=== PATIENT | female | born 1970 | race Caucasian/White ===

== ENCOUNTER 2017-05-11 17:00 | Inpatient (IN) | payer OTHER ==
--- NOTE | ~2017-05-11 | PN ---
Unit #: [id number] #: [id number] Patient: JOCELYNE HARDEN [id number] [facility] [address] [place] [address] [id number] MR#: [id number] NAME: JOCELYNE HARDEN ROOM: [facility] Age: 46 Sex: F Admission Date: 05/11/2017 : 1970 Attending Physician: Ministerio Martinez M.D. Admitting Physician: Ministerio Martinez M.D. Primary Care Physician: Generic Doctor Not In System [facility] PROGRESS NOTES DATE 05/15/2017 DISCUSSION Ms. Harden is a 46-year-old white female with mood disorder and substance abuse who was seen today and chart was reviewed and case was discussed with the staff. She reports doing much better and has been calm and cooperative and compliant with treatment recommendations as she has been taking medications and tolerating them fairly well with no reported side effects. MENTAL STATUS EXAMINATION Middle-aged white female who was casually dressed with fair personal hygiene and appears to be in no acute distress or discomfort. She was awake and alert with intact orientation. Her mood was anxious with congruent affect. She denies any suicidal or homicidal ideation and also denies any auditory or visual hallucinations. Her insight and judgement remains slightly impaired. TREATMENT PLAN 1. Will continue on current medications and treatment protocol. Will monitor her response to medications and make further adjustments as needed. 2. Will continue to follow up. Dictated by... Ministerio Martinez M.D. IAA/faviola TD: 05/15/2017 18:57 JOB #: [id number] Unit #: [id number] #: [id number] Patient: JOCELYNE HARDEN [facility] PROGRESS NOTES Page 1 of 1 X Ministerio Martinez MD X PROGRESS NOTE
--- NOTE | ~2017-05-11 | PN ---
Unit #: [id number] #: [id number] Patient: JOCELYNE HARDEN [id number] [facility] [address] [place] [address] [id number] I MR#: [id number] NAME: JOCELYNE HARDEN ROOM: [facility] Age: 46 Sex: F Admission Date: 05/11/2017 : 1970 Attending Physician: Ministerio Martinez M.D. Admitting Physician: Ministerio Martinez M.D. Primary Care Physician: Generic Doctor Not In System [facility] PROGRESS NOTES DATE May 13, 2017 DISCUSSION Ms. Harden is a 46-year-old white female, who was seen today and chart was reviewed and the case was discussed with the staff. The patient has been anxious, withdrawn, and rather seclusive to herself. Meanwhile, she has been cooperative with the treatment recommendations and she has been taking the medications and tolerating them fairly well. MENTAL STATUS EXAMINATION Middle-aged white female, who was casually dressed with fair personal hygiene and appears to be in no acute distress or discomfort. The patient was awake and alert with intact orientation. Her mood is anxious with a congruent affect. The patient denies any suicidal or homicidal ideations. Her insight and judgment remain slightly impaired. TREATMENT PLAN 1. We will continue her on her current treatment protocol, and will monitor her response to the medications, and make further adjustments as needed. 2. We will continue to followup. Dictated by... Azeem Zendejas/nubia TD: 05/14/2017 08:35 JOB #: [id number] Unit #: [id number] #: [id number] Patient: JOCELYNE HARDEN [facility] PROGRESS NOTES Page 1 of 1 X Ministerio Martinez MD X PROGRESS NOTE
--- NOTE | ~2017-05-11 | DS ---
Unit #: [id number] #: [id number] Patient: JOCELYNE HUDDLESTON [id number] [facility] [address] [id number] I MR#: [id number] NAME: JOCELYNE HUDDLESTON ROOM: P176 Age: 46 Sex: F Admission Date: 05/11/2017 : 1970 Discharge Date: 05/17/2017 Attending Physician: Ministerio Martinez M.D. Primary Care Physician: Generic Doctor Not In System DISCHARGE SUMMARY IDENTIFYING DATA Ms. Huddleston is a 46-year-old white female, who is a resident of [place], [place] and was self-referred to the hospital on a volunteer basis with the chief complaint of "I want to and I am going to cut my wrist." HISTORY OF PRESENT ILLNESS Please see initial psychiatric evaluation for details. PAST PSYCHAITTRIC HISTORY Please see initial psychiatric evaluation for details. PAST MEDICAL HISTORY Please see initial psychiatric evaluation for details. HOSPITAL COURSE The patient was admitted to the Adult Chemical Dependence Unit at [facility] and was oriented to the hospital environment, routine p.r.n. medications were initiated and she was started on the opiate detox protocol and was closely monitored. The patient was anxious, withdrawn, and rather seclusive to herself; however, she was polite and pleasant and cooperative with the treatment recommendations and able to come out of the detox without any complications and was denying any suicidal ideations, intent, or plan and was willing to continue treatment on outpatient basis and as such it was decided that she will be maintained on her current medications and treatment protocol, and will be discharged to continue treatment on outpatient basis. DISCHARGE DIAGNOSES Hunnewell I Major depressive disorder, recurrent, moderate, without psychotic features. Opiate dependence, moderate, and acute withdrawal. Methamphetamine dependence, moderate. Hunnewell II Hunnewell III None. Hunnewell IV Moderate psychosocial stressors. Hunnewell V DISCHARGE MEDICATIONS None CONDITION AT DISCHARGE Unit #: [id number] #: [id number] Patient: JOCELYNE HUDDLESTON Stable PROGNOSIS Guarded Dictated by... Azeem Zendejas/nubia TD: 05/17/2017 08:38 JOB #: [id number] DISCHARGE SUMMARY Page 1 of 1 X Ministerio Martinez MD DISCHARGE SUMMARY
--- NOTE | ~2017-05-11 | PA ---
Unit #: [id number] #: [id number] Patient: JOCELYNE HARDEN [id number] [facility] [address] [place] [address] [id number] I MR#: [id number] NAME: JOCELYNE HARDEN ROOM: 84 Age: 46 Sex: F Admission Date: 05/11/2017 : 1970 Date of Assessment: Attending Physician: Ministerio Martinez M.D. Admitting Physician: Ministerio Martinez M.D. Primary Care Physician: Generic Doctor Not In System PSYCHIATRIC ASSESSMENT DATE OF SERVICE 05/12/2017. IDENTIFYING DATA Ms. Harden is a 46-year-old white female, who is a resident of [place], [place], and was self-referred to the hospital on a voluntary basis. CHIEF COMPLAINT "I want to and I'm going to cut my wrists." HISTORY OF PRESENT ILLNESS Ms. Harden is a 46-year-old white female with history of substance abuse and mood disorder, who was self-referred to the hospital. Upon presentation, she reports increasing depression and suicidal ideation with an intent and plan "I've been wanting to for months, I broke up with my boyfriend and I'm homeless." She denies any homicidal ideations, though she does report some paranoia and hallucinations and delusions, particularly when she is using methamphetamine and was seen to be quite compromised, disorganized, and a danger to self and others and as such, a recommendation for inpatient level of care for safety and stabilization was made. SUBSTANCE ABUSE HISTORY The patient reports extensive history of substance abuse and dependence including alcohol, cannabis, cocaine, acid, and opioids, and methamphetamines and currently, it appears that methamphetamine and opioids have been her drug of choice as she reports that she has been using up to 2 g of heroin a day and has been using 8 g of methamphetamine on a daily basis. PAST PSYCHIATRIC HISTORY The patient has not had any prior inpatient or outpatient psychiatric treatment. Review of the medical records indicate currently she is not active in any treatment program, is not seeing a psychiatrist, and is not taking any psychotropic medications. PAST MEDICAL HISTORY No acute or chronic medical illnesses. ALLERGIES No known medication allergies. Unit #: [id number] #: [id number] Patient: JOCELYNE HARDEN CURRENT MEDICATIONS None. PERSONAL AND SOCIAL HISTORY A 46-year-old white female, who reports that she is single, unemployed, and essentially homeless and has poor social support system. MENTAL STATUS EXAMINATION Middle-aged white female, who was casually dressed with fair personal hygiene, appears to be in no acute distress or discomfort. She was awake and alert on interaction with intact orientation to time, place, and person. Her mood was anxious and depressed with a congruent affect. Her speech was slow and restricted in content. She reports having suicidal ideations, but denies any homicidal ideations and also denies any auditory or visual hallucinations. Her insight and judgment remain significantly impaired. DIAGNOSTIC IMPRESSION Psychiatric: Major depressive disorder, recurrent, moderate, without psychotic features; opioid dependence, moderate, in acute withdrawals; and methamphetamine dependence, moderate. Medical: None. Stressors: Moderate psychosocial stressors. TREATMENT PLAN 1. The patient has presented with a history of mood disorder and substance abuse and dependence and has been decompensating and will need inpatient hospitalization for detoxification, safety, and stabilization. We will start her on detox protocol. We will monitor her response and make further adjustments as needed. 2. Supportive therapy was provided to the patient. ESTIMATED LENGTH OF STAY 5 to 7 days. ABILITY TO HELP SELF Limited. WILLINGNESS TO HELP SELF The patient appears to be willing to help self. STRENGTHS 1. Communicative. 2. Cooperative. PROBLEMS 1. Chronic dysphoric symptoms. 2. Poor social support system. DISCHARGE CRITERIA This will be contingent upon the patient's ability to show resolution of her depression and anxiety and her ability to stay safe to herself, particularly after discharge from the hospital. Dictated by... Ministerio Martinez M.D. Unit #: [id number] #: [id number] Patient: JOCELYNE HARDEN IAA/modl TD: 05/12/2017 15:04 JOB #: [id number] PSYCHIATRIC ASSESSMENT Page 1 of 1 X Ministerio Martinez MD PSYCHIATRIC ASSESSMENT
--- NOTE | ~2017-05-11 | PN ---
Unit #: [id number] #: [id number] Patient: JOCELYNE HARDEN [id number] [facility] [address] [place] [address] [id number] I MR#: [id number] NAME: JOCELYNE HARDEN ROOM: [facility] Age: 46 Sex: F Admission Date: 05/11/2017 : 1970 Attending Physician: Ministerio Martinez M.D. Admitting Physician: Ministerio Martinez M.D. Primary Care Physician: Generic Doctor Not In System [facility] PROGRESS NOTES DATE May 14, 2017 DISCUSSION Ms. Harden is a 46-year-old white female, who was seen today and chart was reviewed and the case was discussed with the staff. The patient has been anxious, withdrawn, and rather seclusive to herself. Meanwhile, she has been taking the medications and tolerating them fairly well with no reported side effects. MENTAL STATUS EXAMINATION Middle-aged white female, who was casually dressed with fair personal hygiene and appears to be in no acute distress or discomfort. The patient was awake and alert with impaired attention and concentration. Her mood was anxious and depressed with a congruent affect. She denies any suicidal or homicidal ideations though she does report persistent auditory hallucinations. Her insight and judgment remain significantly impaired. TREATMENT PLAN 1. We will continue her on her current medications and treatment protocol, and will monitor her response to the medications, and make further adjustments as needed. 2. We will continue to followup. Dictated by... Azeem Zendejas/nubia TD: 05/15/2017 10:43 JOB #: [id number] Unit #: [id number] #: [id number] Patient: JOCELYNE HARDEN [facility] PROGRESS NOTES Page 1 of 1 X Ministerio Martinez MD PROGRESS NOTE
--- NOTE | ~2017-05-11 | PN ---
Unit #: [id number] #: [id number] Patient: JOCELYNE HARDEN [id number] [facility] [address] [place] [address] [id number] MR#: [id number] NAME: JOCELYNE HARDEN ROOM: [facility] Age: 46 Sex: F Admission Date: 05/11/2017 : 1970 Attending Physician: Ministerio Martinez M.D. Admitting Physician: Ministerio Martinez M.D. Primary Care Physician: Raul Doctor Not In System [facility] PROGRESS NOTES DATE May 16, 2017 DISCUSSION Ms. Harden is a 46-year-old white female, who was seen today and chart was reviewed and the case was discussed with the staff. She has been anxious, withdrawn, and rather seclusive to herself. Meanwhile, she has been cooperative with the treatment recommendations and has been taking the medications and tolerating them fairly well with no reported side effects. MENTAL STATUS EXAMINATION Middle-aged white female, who was casually dressed with fair personal hygiene and appears to be in no acute distress or discomfort. The patient was awake and alert with intact orientation. Her mood was anxious with a congruent affect. The patient denies any suicidal or homicidal ideations, and also denies any auditory or visual hallucinations. Her insight and judgment remain slightly impaired. TREATMENT PLAN 1. We will continue her on her current medications and treatment protocol, and will monitor her response to the medications, and make further adjustments as needed. 2. We will continue to followup. Dictated by... Azeem Zendejas/nubia TD: 05/16/2017 09:11 JOB #: [id number] Unit #: [id number] #: [id number] Patient: JOCELYNE HARDEN PROGRESS NOTES Page 1 of 1 X Ministerio Martinez MD PROGRESS NOTE
--- NOTE | ~2017-05-11 | HP ---
Unit #: [id number] #: [id number] Patient: JOCELYNE HARDEN [id number] [place] [address] [id number] I MR#: [id number] NAME: JOCELYNE HARDEN ROOM: 84 Age: 46 Sex: F Admission Date: 05/11/2017 : 1970 Attending Physician: Ministerio Martinez M.D. Admitting Physician: Ministerio Martinez M.D. Primary Care Physician: Generic Doctor Not In System HISTORY AND PHYSICAL HISTORY OF PRESENT ILLNESS The patient is a 46-year-old female who states she is admitted due to detox for multiple drugs. PAST MEDICAL HISTORY None. PAST SURGICAL HISTORY None. SOCIAL HISTORY Positive for smoking and heroin. ALLERGIES None. FAMILY HISTORY Noncontributory. REVIEW OF SYSTEMS CONSTITUTIONAL: No fever or chills. HEENT: Denies any sore throat, ear pain or runny nose. CARDIOVASCULAR: Denies chest pain, irregular heart rhythm or palpitations. CHEST: Denies shortness of breath or cough. No hemoptysis. GASTROINTESTINAL: Denies nausea, vomiting, diarrhea or chronic constipation. ENDOCRINE: Denies history of increased thirst or urination. No recent significant weight loss or gain. GENITOURINARY: Denies dysuria, frequency, or hematuria. SKIN: Denies any rashes. HEMATOLOGIC: Denies history of increased bleeding or bruising. MUSCULOSKELETAL: Denies any hot, swollen joints. No generalized muscle pain. NEUROLOGIC: Denies problems with vision or speech. No frequent, severe headaches. No numbness, tingling or weakness in any extremities. Denies loss of bladder or bowel control. CURRENT MEDICATIONS None. PHYSICAL EXAMINATION Unit #: [id number] #: [id number] Patient: JOCELYNE HARDEN GENERAL: Alert, oriented in no acute distress. VITAL SIGNS: Temperature 98.5, heart rate 106, respirations blood pressure 154/91. HEIGHT: 5 feet 1 inches WEIGHT: 160 pounds SKIN: Warm and dry without rash or lesion. HEENT: Normocephalic. TMs not viewed. Oral and nasal passages clear. Conjunctivae clear. PERRLA. EOMs intact. NECK: Supple without lymphadenopathy or thyromegaly. HEART: Regular rate and rhythm without murmur. LUNGS: Clear. ABDOMEN: Soft, nontender, without masses or hepatosplenomegaly. : Not done. EXTREMITIES: No evidence of cyanosis, clubbing or edema. Moves all without focal deficit. NEUROLOGICAL: Grossly within normal limits. Cranial Nerves: II: Visual ochoa are intact. III, IV AND : Extraocular movements are intact. Pupils are equal, round and reactive to light. V: Facial sensation is grossly normal. VII: Facial movements and expression are normal. VIII: Auditory acuity grossly intact. IX, X: Uvula is midline. Phonation is normal. XI: Patient shrugs shoulders and turns head normally. XII: Tongue protrudes in the midline. Sensory and Motor Function: Sensory and motor sensation is grossly normal. Motor: moves all extremities well. Coordination: Gait is normal. Deep Tendon Reflexes: Intact. IMPRESSION Psychiatric admission RECOMMENDATIONS Psychiatric, per psychiatrist. MEDICAL: I see no contraindications to participating in facility's activities. MEDICAL PROGNOSIS Good. Dictated by... Joseph Redding/swati TD: 05/13/2017 02:47 JOB #: [id number] Unit #: [id number] #: [id number] Patient: JOCELYNE HARDEN HISTORY AND PHYSICAL Page 1 of 1 X Fatimah Bermudez APR X HISTORY AND PHYSICAL
[2017-05-15 10:02] LABS: URINE APPEARANCE CLEAR; URINE BILIRUBIN NEG (NEG); URINE BLOOD NEG (NEG); URINE COLOR YELLOW; URINE GLUCOSE NEG (NEG); URINE KETONE NEG (NEG); URINE LEUKOCYTE ESTERASE NEG (NEG); URINE NITRATE NEG (NEG); URINE PH 8.5 (5-8); URINE PROTEIN NEG (NEG); URINE UROBILINOGEN 0.2 MG/DL (NEG)
[2017-05-15 10:28] LABS: AMPHETAMINE NEG (NEG); BARBITURATES NEG (NEG); BENZODIAZEPINES NEG (NEG); COCAINE NEG (NEG); MARIJUANA NEG (NEG); OPIATES NEG (NEG); TRICYCLIC ANTIDEPRESSANTS NEG (NEG); U METHADONE NEG (NEG)
== END 2017-05-17 08:50 | DRG 885 ==
LOC: P1E 20:24
PROVIDERS: Psychiatry & Neurology Psychiatry
PROC: HZ2ZZZZ Detoxification Services for Substance Abuse Treatment (ICD-10-PCS; principal; 2017-05-11)
DX: F33.1 Major depressive disorder, recurrent, moderate (principal); F15.20 Other stimulant dependence, uncomplicated; F11.23 Opioid dependence with withdrawal; Z56.0 Unemployment, unspecified; Z59.0 Homelessness; F41.9 Anxiety disorder, unspecified
CPT/HCPCS: 80307; 81003